=== PATIENT | female | born 1985 | race Caucasian/White ===

== ENCOUNTER 2016-11-28 03:14 | Emergency (ER) | payer OTHER ==
[~2016-11-28] VITALS: Ht 160 cm; Wt 55.3 kg
[~2016-11-28 03:14] MED LIST: MOTRIN800 MG PO; NEURONTIN100 MG PO
[2016-11-28 03:17] VITALS: BP 106/60
--- NOTE | 2016-11-28 04:27 | NUR ---
Patient taken to bed 05 via wheelchair per family member.
--- NOTE | 2016-11-28 04:34 | NUR ---
Dr. Morrison evaluating patient at bedside.
--- NOTE | 2016-11-28 05:15 | NUR ---
PT TO US VIA WC IN STABLE CONDITION
--- NOTE | 2016-11-28 05:26 | NUR ---
LOWER ABD PAIN, STARTED 20 MINUTES AGO, NO BLEEDING NOTED 4 WEEKS, LMP DENIES N/V/D; SKIN IS PINK/WARM/DRY; AAOX4 WITH EVEN AND STEADY GAIT; LUNGS CLEAR BL; HR EVEN AND REGULAR; PT DENIES ANY FEVER, CP, SOB, OR COUGH AT THIS TIME; PATIENT STATES PAIN OF 7/10 AT THIS TIME; VSS; PATIENT POSITIONED FOR COMFORT; HOB ELEVATED; BEDRAILS UP X2; BED DOWN. ER MD MADE AWARE OF PT STATUS.
--- NOTE | 2016-11-28 05:44 | NUR ---
Patient back from US via wheelchair per tech.
--- NOTE | 2016-11-28 05:46 | NUR ---
PT RETURNED FROM US VIA IN STABLE CONDITION
--- NOTE | 2016-11-28 07:04 | NUR ---
REPORT TO HUNTER SULTANA
[2016-11-28 07:45] VITALS: BP 111/71
--- NOTE | 2016-11-28 07:45 | NUR ---
Patient discharged with v/s stable. Written and verbal after care instructions given and explained. Patient verbalized understanding. Ambulatory with steady gait. All questions addressed prior to discharge. Advised to follow up with PMD.
== END 2016-11-28 07:45 | disposition home or self-care (01) ==
LOC: MED 03:14
PROC: BU46ZZZ Ultrasonography of Uterus (ICD-10-PCS; principal; 2016-11-28)
DX: O26.891 Other specified pregnancy related conditions, first trimester (principal); R10.9 Unspecified abdominal pain; F45.8 Other somatoform disorders; Z3A.01 Less than 8 weeks gestation of pregnancy
CPT/HCPCS: 36415; 76817; 80053; 81001; 84702; 85025; 87086; 99285; Q0092

== ENCOUNTER 2018-08-16 18:33 | Emergency (ER) | payer OTHER ==
[~2018-08-16] VITALS: Ht 157.5 cm; Wt 45.4 kg
[~2018-08-16 18:33] MED LIST changes: +GABA100C PO; +IBUP-974 PO; -MOTRIN800 MG PO; -NEURONTIN100 MG PO
[2018-08-16 18:50] VITALS: BP 106/57
--- NOTE | 2018-08-16 18:58 | NUR ---
PT AMBULATED TO BED 01.
--- NOTE | 2018-08-16 19:05 | NUR ---
Note undone in EDM - 08/16/18 at 1954 by [email or web address] SKIN IS PINK/WARM/DRY;PT PRESENTED ER WITH C/O JEAN BAPTISTE, BODY ACHES, SORE THROAT, AND COUGH X 3 DAYS. PT HAS BEEN TAKING IBUPROFEN AND COUGH DROPS WITH NO RELIEF. PT STATES HER JEAN BAPTISTE IS ON THE LEFT [place] AND HAS PRESSURE. PT IS A/O X 4. PT HAS NO ALLERGIES AND MEDICAL HX IS ANEMIA; VSS; PATIENT POSITIONED FOR COMFORT; HOB ELEVATED; BEDRAILS UP X2; BED DOWN. ER MD MADE AWARE OF PT STATUS.
--- NOTE | 2018-08-16 19:05 | NUR ---
PT PRESENTED ER WITH C/O JEAN BAPTISTE, BODY ACHES, SORE THROAT, AND COUGH X 3 DAYS. PT HAS BEEN TAKING IBUPROFEN AND COUGH DROPS WITH NO RELIEF. PT STATES HER JEAN BAPTISTE IS ON THE LEFT [place] AND HAS PRESSURE. PT IS A/O X 4. PT HAS NO ALLERGIES AND MEDICAL HX IS ANEMIA. SKIN IS PINK/WARM/DRY;VSS; PATIENT POSITIONED FOR COMFORT; HOB ELEVATED; BEDRAILS UP X2; BED DOWN. ER MD MADE AWARE OF PT STATUS.
--- NOTE | 2018-08-16 19:28 | NUR ---
Dr. Bernabe evaluating patient at bedside.
[2018-08-16] MEDS ORDERED: KETOROLAC 60 MG/2 ML VIAL IM ONE (19:50)
[2018-08-16 20:18] VITALS: BP 106/57
--- NOTE | 2018-08-16 20:18 | NUR ---
Patient discharged with v/s stable. Written and verbal after care instructions given and explained. Patient alert, oriented and verbalized understanding of instructions. Ambulatory with steady gait. All questions addressed prior to discharge. ID band removed. Patient advised to follow up with PMD. Rx of MOTRIN WAS given. Patient educated on indication of medication including possible reaction and side effects. Opportunity to ask questions provided and answered.
== END 2018-08-16 20:18 | disposition home or self-care (01) ==
LOC: MED 18:33
DX: G44.209 Tension-type headache, unspecified, not intractable (principal); Z79.899 Other long term (current) drug therapy
CPT/HCPCS: 81002; 81025; 96372; 99283; J1885

== ENCOUNTER 2022-11-28 21:54 | Emergency (ER) | payer OTHER ==
[~2022-11-28] VITALS: Ht 157.5 cm; Wt 61.2 kg
[2022-11-28 21:55] VITALS: BP 133/90
--- NOTE | 2022-11-28 21:58 | NUR ---
TO LOBBY A/W BED AMBULATORY
--- NOTE | 2022-11-29 01:24 | NUR ---
HEAD PAIN, S/P PLAYING BASEBALL AND WAS HIT BY BALL ON HER HEAD AT 2100HOURS, NO LOC
--- NOTE | 2022-11-29 01:54 | NUR ---
Dr. Johnson examining patient.
--- NOTE | 2022-11-29 01:54 | NUR ---
PT TAKEN TO BED 10
[2022-11-29] MEDS ORDERED: KETOROLAC 60 MG/2 ML VIAL IM ONE (01:55)
[2022-11-29] MEDS ORDERED: NAPR-54 PO (03:56)
--- NOTE | 2022-11-29 04:00 | NUR ---
Patient discharged with v/s stable. Written and verbal after care instructions given and explained. Patient verbalized understanding. Ambulatory with . All questions addressed prior to discharge. Advised to follow up with PMD.Pt left with her belongings.
[2022-11-29 04:30] VITALS: BP 133/90
== END 2022-11-29 04:00 | disposition home or self-care (01) ==
LOC: MED 21:54
DX: S09.90XA Unspecified injury of head, initial encounter (principal); Z79.899 Other long term (current) drug therapy; Z79.1 Long term (current) use of non-steroidal anti-inflammatories (NSAID); W21.03XA Struck by baseball, initial encounter; Y92.89 Other specified places as the place of occurrence of the external cause; Y93.89 Activity, other specified; Y99.8 Other external cause status
CPT/HCPCS: 70450; 96372; 99285; J1885